=== PATIENT | female | born 1975 | race African-American/Black ===

== ENCOUNTER 2024-04-23 08:08 | Emergency (ER) | payer SELFPAY ==
[2024-04-23] MEDS ORDERED: Ibuprofen 200 MG TAB ONE (08:27)
[2024-04-23 08:55] LABS: #Basophils 0.02 10x3/uL (0.0-0.2); #Eosinphils 0.08 10x3/uL (0.0-0.5); #Monocytes 0.29 10x3/uL (0.0-1.1); #Neutrophils 3.52 10x3/uL (1.5-8.4); %Basophils 0.4 % (0.0-2.0); %Eosinophils 1.7 % (0.0-6.0); %Lymphocytes 18.6 % (18.0-47.0); %Neutrophils 72.9 % (40.0-75.0); BHCG - Serum Negative (NEGATIVE); Hematocrit 26.4 % (34.9-44.5); Hemoglobin 8.9 g/dL (12.0-15.5); Mean Corpuscular HGB CONC 33.7 g/dL (32.0-36.0); Mean Corpuscular Volume 65.3 fL (81.6-98.3); Mean Platelet Volume 11.1 fL (7.4-10.4); Platelet Count 166 10x3/uL (150-450); Pregs Control Background? CLEAR/WHITE (CLR/WHITE); Pregs Control Bar Appear? YES (CONTROL BAR); RBC Distribution Width 15.9 % (11.5-14.5); Red Blood Cell (RBC) Count 4.04 10x6/uL (3.90-5.03); White Blood Cell (WBC) Count 4.8 10x3/uL (3.5-10.5)
[2024-04-23] MEDS ORDERED: Lidocaine 4% Patch TD SCH (09:00)
[2024-04-23 09:05] LABS: ALT (SGPT) 9 U/L (8-55); AST (SGOT) 12 U/L (5-34); Albumin 3.6 g/dL (3.5-5.0); Alkaline Phosphatase 53 U/L (40-110); Anion Gap 12 mmol/L (10-20); BUN (Urea Nitrogen) 9 mg/dL (7.0-18.7); Bilirubin, Total 0.7 mg/dL (0.2-1.2); Calc. Creatinine Clearance 0 mL/min (70-130); Calcium 8.9 mg/dL (7.8-10.44); Carbon Dioxide 23 mmol/L (22-29); Chloride 105 mmol/L (98-107); Estimated GFR 90; Glucose 217 mg/dL (70-105); Lipase 25 U/L (8-78); Magnesium 1.8 mg/dL (1.6-2.6); Potassium 4.2 mmol/L (3.5-5.1); Protein, Total 6.6 g/dL (6.0-8.3); Sodium 136 mmol/L (136-145)
[2024-04-23 09:07] LABS: Troponin I Less than 0.010 ng/mL (< 0.028)
[2024-04-23 10:02] LABS: Microcytosis SLIGHT = 6-15 cells (100X) (0-5/hpf); Platelet Adequacy Comment Appears Adequate; Polychromasia SLIGHT = 2-3 cells (100X) (0-2/hpf); Spherocytes SLIGHT = 1-5 cells (100X) (None Seen)
[2024-04-23] MEDS ORDERED: Carvedilol 25 MG TAB ONE (10:23)
[2024-04-23 11:32] LABS: Bilirubin Neg (Negative); Blood, Urine Negative (Negative); Clarity Slightly Cloudy (Clear); Glucose, Urine (Dipstick) 50 mg/dL (Negative); Ketone, Urine Negative (Negative); Leukocyte Negative (Negative); Nitrite Negative (Negative); Protein, Urine (Dipstick) Negative (Neg-Trace); Urobilinogen Normal mg/dL (Less than 2)
[2024-04-23 11:41] LABS: CAUTI Indications for Culture Pelvic or flank pain; RBC/HPF 0-3 HPF (0-3); WBC/HPF 0-3 HPF (0-3)
[2024-04-23 11:42] LABS: Bacteria/HPF 1+ HPF (None Seen)
[2024-04-23 11:43] LABS: Urine Culture Reflex No No
[2024-04-23] MEDS ORDERED: Transdermal Patch Removal TOP SCH (21:00)
== END 2024-04-23 10:45 | disposition home or self-care (01) ==
LOC: CSHERS 08:08
DX: D25.9 Leiomyoma of uterus, unspecified (principal); R60.9 Edema, unspecified; E11.9 Type 2 diabetes mellitus without complications; I10 Essential (primary) hypertension
CPT/HCPCS: 71045; 76856; 80053; 81001; 83690; 83735; 83880; 84484; 84703; 85025; 93005

== ENCOUNTER 2024-05-10 06:19 | Emergency (ER) | payer OTHER ==
[2024-05-10] MEDS ORDERED: Dexamethasone 10 MG/ML VIAL ONE (06:43)
[2024-05-10] MEDS ORDERED: hydrALAZINE 20 MG/ML VIAL ONE (06:43)
[2024-05-10] MEDS ORDERED: Ipratropium/Albuterol 3 ML NEB ONE ×2 (06:51→08:38)
[2024-05-10 07:03] LABS: Anion Gap 16 mmol/L (10-20); BUN (Urea Nitrogen) 15 mg/dL (7.0-18.7); Calc. Creatinine Clearance 0 mL/min (70-130); Carbon Dioxide 16 mmol/L (22-29); Chloride 106 mmol/L (98-107); Estimated GFR 93; Glucose 209 mg/dL (70-105); Potassium 4.4 mmol/L (3.5-5.1); Sodium 134 mmol/L (136-145)
[2024-05-10 07:10] LABS: Troponin I Less than 0.010 ng/mL (< 0.028)
[2024-05-10] MEDS ORDERED: Magnesium 2 GM/50 ML BAG (IN WATER) ONE (08:18)
[2024-05-10] MEDS ORDERED: Ketorolac Tromethamine 30 MG (1 mL) VIAL ONE (08:19)
[2024-05-10 09:15] LABS: #Basophils 0.02 10x3/uL (0.0-0.2); #Monocytes 0.38 10x3/uL (0.0-1.1); %Basophils 0.3 % (0.0-2.0); %Eosinophils 1.7 % (0.0-6.0); %Lymphocytes 16.7 % (18.0-47.0); %Monocytes 6.3 % (0.0-10.0); %Neutrophils 74.3 % (40.0-75.0); Hematocrit 25.2 % (34.9-44.5); Hemoglobin 8.3 g/dL (12.0-15.5); Mean Corpuscular HGB CONC 32.9 g/dL (32.0-36.0); Mean Corpuscular Hemoglobin 21.4 pg (27.0-33.0); Mean Corpuscular Volume 65.1 fL (81.6-98.3); Mean Platelet Volume 10.9 fL (7.4-10.4); Platelet Count 222 10x3/uL (150-450); RBC Distribution Width 16.2 % (11.5-14.5); Red Blood Cell (RBC) Count 3.87 10x6/uL (3.90-5.03); White Blood Cell (WBC) Count 6.1 10x3/uL (3.5-10.5)
== END 2024-05-10 10:17 | disposition home or self-care (01) ==
LOC: CSHERS 06:19
DX: J45.901 Unspecified asthma with (acute) exacerbation (principal); D50.9 Iron deficiency anemia, unspecified; I10 Essential (primary) hypertension; Z79.899 Other long term (current) drug therapy
CPT/HCPCS: 36415; 71045; 80048; 83880; 84484; 85025; 93005; 96374; 96375; J0360; J1100; J1885; J3475; J7620